=== PATIENT | female | born 1970 | race Caucasian/White ===

== ENCOUNTER 2025-03-05 11:38 | Emergency (ER) | payer OTHER ==
[2025-03-05 11:48] VITALS: BP 142/82; PULSE 52; RESP 17; TEMP 97.5; BMI 24.0
[2025-03-05] MEDS ORDERED: FAMOTIDINE 20 MG/50 ML IVPB 20 MG/50 ML MG IVPB ONE (12:52)
[2025-03-05] MEDS: SODIUM CHLORIDE 0.9% 500 ML INFUS.BAG IV ONE (12:57)
[2025-03-05] MEDS: FAMOTIDINE 20 MG/50 ML IVPB 20 MG/50 ML MG IVPB ONE (12:57)
[2025-03-05 13:04] LABS: ABSOLUTE IMMATURE GRANULOCYTES 0.05 x10^3/uL (0.0-0.031); BASOPHILS # 0.05 x10^3/uL (0.01-0.08); EOSINOPHIL % 2.0 % (0.7-5.8); EOSINOPHILS # 0.26 x10^3/uL (0.04-0.36); MCHC 32.3 g/dl (32.2-35.5); MEAN CELL VOLUME 88.8 fl (79.4-94.8); MEAN PLT VOLUME 9.7 fl (9.4-12.3); MONOCYTE # 0.94 x10^3/uL (0.24-0.86); MONOCYTE % 7.2 % (4.7-12.5); RDW 13.0 % (12.3-16.6)
[2025-03-05 13:11] LABS: INR 1.04 (0.83-1.09); PROTHROMBIN TIME (PATIENT) 11.4 SEC (9.7-13.0)
[2025-03-05 13:13] LABS: ACTIVATED PTT 29.7 SECONDS (25.2-36.5)
[2025-03-05 13:19] LABS: GLUCOSE,RANDOM 72.0 mg/dL (74-106)
[2025-03-05 13:20] LABS: TOT PROT 7.4 g/dl (6.4-8.2)
[2025-03-05 13:21] LABS: CO2 21.0 mmol/L (21-32)
[2025-03-05 13:22] LABS: ALK PHOS 100.0 U/L (40-150)
[2025-03-05 13:25] LABS: SGOT/AST 135.0 U/L (5-34); SGPT/ALT 82.0 U/L (0-55)
[2025-03-05 13:26] LABS: CREATININE 0.9 mg/dL (0.55-1.3)
[2025-03-05 13:47] LABS: HCV DIAGNOSTIC IN-HOUSE W/RFLX NON-REACTIVE (NONREACTIVE); HIV INTERPRETATION NEGATIVE (NEGATIVE)
== END 2025-03-05 15:00 | disposition home or self-care (01) ==
LOC: JER 11:38
PROC: 3E033GC Introduction of Other Therapeutic Substance into Peripheral Vein, Percutaneous Approach (ICD-10-PCS; principal; 2025-03-05)
DX: R07.2 Precordial pain (principal); R10.13 Epigastric pain; R11.0 Nausea; R61 Generalized hyperhidrosis; R00.1 Bradycardia, unspecified
CPT/HCPCS: 36415; 71046-TC-FY; 80053; 83690; 83735; 84484; 85025; 85610; 85730; 86803; 87389; 93005; 93010; 99285-25